=== PATIENT | female | born 1985 | race Caucasian/White ===

== ENCOUNTER 2021-11-24 17:42 | Emergency (ER) | payer BC, SELFPAY ==
[2021-11-24 17:52] VITALS: BP 141/84; PULSE 100; RESP 18; TEMP 37; O2SAT 98; BMI 31.3
--- NOTE | 2021-11-24 18:15 | CRLHL7_ITS ---
For Patients: As a result of the Century Cures Act, medical imaging exams and procedure reports are released immediately into your electronic medical record. You may view this report before your referring provider. If you have questions, please contact your health care provider. INDICATION: RLQ pain. CT ABDOMEN AND PELVIS WITH CONTRAST TECHNIQUE: Multidetector CT imaging was performed through the abdomen and pelvis following intravenous contrast administration using 92 mL Isovue 370. Coronal and sagittal reconstructions were generated. COMPARISON: None. FINDINGS: Lower chest: Lung bases are clear. Liver: Unremarkable aside from a subcentimeter hypodensity in the right hepatic lobe on image 26 of series 2 which is not well characterized but likely benign. Gallbladder and bile ducts: No gallbladder wall thickening or calcified gallstones. No biliary dilation identified. Pancreas: Unremarkable. Spleen: Mild splenomegaly measuring 15.2 centimeters. Adrenals: No nodules or masses. Kidneys, ureters, and urinary bladder: No renal masses or hydronephrosis. No bladder mass or definite wall thickening. Gastrointestinal tract: Moderate abnormal wall thickening of distal ileal loops in the right lower quadrant, including the terminal ileum, with adjacent mild mesenteric edema, consistent with enteritis. No evidence of bowel obstruction. The appendix and colon appear normal. Vascular structures: Normal for age. Peritoneum: Small amount of free fluid in the low pelvis. No loculated collection suggestive of abscess. No free air identified. Lymph nodes: No pathologically enlarged nodes identified. Reproductive organs: No pelvic masses. Bones: Mild to moderate left-sided sacroiliitis (e.g. images 55-59 of series 4). IMPRESSION: 1. Nonspecific enteritis involving the distal ileum in the right lower quadrant, including the terminal ileum, with associated mild mesenteric edema and mild free fluid. In a patient of this age, the most likely considerations are infectious enteritis versus Crohn`s disease. 2. Nonspecific left-sided sacroiliitis. This may be seen in association with Crohn`s disease. 3. Mild splenomegaly. KIMANI TAYLOR MD [facility] Dictated by Bo Taylor MD @ 11/24/2021 7:54:32 PM Please note that all CT scans at this facility use dose modulation, iterative reconstruction, and/or weight-based dosing when appropriate to reduce radiation dose to as low as reasonably achievable. Dictated by: Bo Taylor MD @ 11/24/2021 19:57:26 (Electronically Signed)
--- NOTE | 2021-11-24 18:16 | ED.ABDPAIN ---
HPI - Abdominal Pain General Chief Complaint: Abdominal Pain Stated Complaint: APPENDIX - HOT/COLD CHILLS Time Seen by Provider: 11/24/21 17:50 History of Present Illness HPI narrative: This 36-year-old female comes in reporting a couple days of abdominal pain that is now localized primarily in the right lower quadrant. She had some diarrhea and vomiting with nausea. She has loss of appetite. Last evening her pain was rather severe with some chills. She did not measure a fever. She states that the pain is worse when going over bumps when riding in the car. Related Data Home Medications Medication Instructions Recorded Confirmed No Known Home Medications 11/24/21 11/24/21 Previous Rx's Medication Instructions Recorded ketorolac 10 mg tablet 10 mg PO TID 5 Days #15 tab 11/24/21 methylprednisolone 4 mg tablets in 4 mg PO DAILY #21 ea 11/24/21 a dose pack (Medrol ([facility])) ondansetron HCl 4 mg tablet 4 mg PO Q6H #20 tab 11/24/21 Allergies Allergy/AdvReac Type Severity Reaction Status Date / Time No Known Drug Allergies Allergy Verified 11/24/21 17:59 Review of Systems Status of ROS Reports: 10 or more systems reviewed and unremarkable except as noted in History and below Narrative Constitutional: No fevers, no weight gain or loss. Eyes: No discharge. No vision changes. HENT: No congestion, no sore throat, no ear pain. Cardiovascular: No chest pain, no palpitations. Respiratory: No shortness of breath, no wheezes, no cough. Gastrointestinal: Abdominal pain with vomiting and diarrhea as described above. Genitourinary: No dysuria, no hematuria. Musculoskeletal: Normal range of motion. Skin: No rashes, no pruritis. Neurological: No dizziness, weakness, sensory change, speech change. Endo/Heme/Allergies: No bruising or bleeding. No polydipsia. Pysch: no suicidality, no anxiety, no insomnia. All other systems reviewed and are negative. PFSH PFSH Social History Smoking Status: Never smoker Do you use any of these nicotine containing products: None Second hand tobacco smoke exposure: Yes (as child) How often do you have a drink containing alcohol: monthly or less How many standard drinks containing alcohol do you have on a typical day: 1 or 2 How often do you have six or more drinks on one occasion: Never AUDIT-C Alcohol total score: 1 Non-prescribed substance use: denies use service: No Exam Narrative: Exam Narrative: Constitutional: Well-developed, well-nourished, no acute distress. HEENT: Normocephalic, atraumatic. Neck: Normal range of motion. Nontender. Supple. Heart: Regular. No murmurs. Normal rate. Intact distal pulses. Lungs: Clear to auscultation. No chest discomfort. No wheezes, rhonchi, or rales. Abdomen: Decreased bowel sounds. Tenderness in the right abdomen and right lower quadrant. Mild rebound tenderness. Genitalia: Deferred. Back: No midline tenderness. Normal range of motion. Extremities: Normal range of motion. No injury. Skin: Intact. No rash. Warm. No erythema or pallor. Neurologic: No altered sensation. No weakness. Alert and oriented. Psychiatric: No suicidality. No anxiety or depression. No insomnia. Nursing notes and vitals signs are reviewed. Const: Vital Signs, click to edit/add: Vital Signs - 24 hr 11/24/21 17:52 11/24/21 20:03 Temperature 98.6 F Pulse Rate [Left P ulse Oximeter] 100 87 Respiratory Rate 18 16 Blood Pressure [Le ft Upper Arm] 141/84 H 136/101 H Pulse Oximetry 98 99 Course Vital Signs Vital signs: Initial Vital Signs Temperature 98.6 F 11/24/21 17:52 Temperature Source Temporal Artery Scan 11/24/21 17:52 Pulse Rate 100 11/24/21 17:52 Respiratory Rate 18 11/24/21 17:52 Blood Pressure 141/84 H 11/24/21 17:52 Blood Pressure Mean 103 11/24/21 17:52 Blood Pressure Position Sitting 11/24/21 17:52 Pulse Oximetry 98 11/24/21 17:52 Oxygen Delivery Method 11/24/21 17:52 Vital Signs Temperature 98.6 F 11/24/21 17:52 Pulse Rate 100 11/24/21 17:52 Respiratory Rate 18 11/24/21 17:52 Blood Pressure 141/84 H 11/24/21 17:52 Pulse Oximetry 98 11/24/21 17:52 Temperature 98.6 F 11/24/21 17:52 Pulse Rate 87 11/24/21 20:03 Respiratory Rate 16 11/24/21 20:03 Blood Pressure 136/101 H 07/13/22 20:03 Pulse Oximetry 99 11/24/21 20:03 MDM - Abdominal Pain MDM Narrative Medical decision making narrative: This patient comes in with abdominal pain that has been diffuse in her abdomen but more localized recently in the right lower quadrant. She has decreased appetite but does not report any fevers. She did have some chills last night. An IV was established and labs were drawn which returned with essentially normal findings. Her potassium is just slightly low. Her white count is normal. CT scan of the abdomen and pelvis shows some changes in the distal ileum and terminal ileum typical of an enteritis that may be infectious or could be Crohn's disease. It seems from her vital signs and her white count that this is not an infectious process. I did advise her regarding these findings. The patient received IV doses of Solu-Medrol 125 mg, Toradol 30 mg, and Zofran 4 mg. Prescriptions are provided for Medrol Dosepak, Toradol, and Zofran. I advised the patient to follow up with surgery Clinic or GI specialist if symptoms are recurrent or persistent. She can return also if worsening symptoms occur. Lab Data Labs: Lab Results 11/24/21 11/24/21 11/24/21 Range/Units 18:03 18:40 18:40 WBC 3.97 L (4.50-11.00) K/uL RBC 4.30 (4.00-5.20) m/uL Hgb 12.3 (12.0-16.0) gm/dL Hct 37.1 (33.0-51.0) % MCV 86 (80-100) fL MCH 29 (26-34) pg MCHC 33 (32-36) gm/dL RDW Coeff of Sara 13.4 (11.5-15.5) % Plt Count 177 (140-440) K/uL Neut % (Auto) 70.2 (42.0-72.0) % Lymph % (Auto) 17.6 L (20-44) % [place] % (Auto) 11.6 H (0.0-11.0) % Eos % (Auto) 0.3 (0.0-7.0) % Baso % (Auto) 0.3 (0.0-3.0) % Neut # (Auto) 2.80 (1.7-7.0) K/uL Lymph # (Auto) 0.70 L (0.90-2.90) K/uL [place] # (Auto) 0.50 (0.00-0.90) K/UL Eos # (Auto) 0.00 (0.00-0.50) K/uL Baso # (Auto) 0.00 (0.00-0.30) K/uL Abs Immat Gran (auto) 0.00 (0.00-0.30) K/uL Sodium 136 (135-149) mmol/L Potassium 3.4 L (3.6-5.1) mmol/L Chloride 103 (96-114) mmol/L Carbon Dioxide 23 (20-32) mmol/L BUN 11 (5-24) mg/dL Creatinine 0.6 (0.5-1.5) mg/dL Estimated Creat Clear 114.40 Glucose 99 (60-115) mg/dL Calcium 8.5 (8.4-10.6) mg/dL HCG, Qual Negative (Negative) Urine Color Yellow (Yellow) Urine Appearance Clear (Clear) Urine pH 5.5 (5.0-8.5) Ur Specific [place] <= 1.005 (1.000-1.030) Urine Protein Negative (Negative) Urine Glucose (UA) Negative (Negative) Urine Ketones 1+ A (Negative) Urine Blood Negative (Negative) Urine Nitrite Negative (Negative) Urine Bilirubin Negative (Negative) Urine Urobilinogen 0.2 (0.2-1.0) Ur Leukocyte Esterase Negative (Negative) Imaging Data CT scan - abdomen: Radiologist's impression: 1. Nonspecific enteritis involving the distal ileum in the right lower quadrant, including the terminal ileum, with associated mild mesenteric edema and mild free fluid. In a patient of this age, the most likely considerations are infectious enteritis versus Crohn`s disease. 2. Nonspecific left-sided sacroiliitis. This may be seen in association with Crohn`s disease. 3. Mild splenomegaly. Discharge Plan Discharge Clinical Impression: Enteritis Condition: Stable Instructions: Enteritis (ED) Additional Instructions: Enteritis. Take medication as prescribed. Follow up with primary physician or GI specialist if recurrent or persistent symptoms happen. Return if worsening. Prescriptions: New ondansetron HCl 4 mg tablet 4 mg PO Q6H Qty: 20 0RF ketorolac 10 mg tablet 10 mg PO TID 5 Days Qty: 15 0RF methylprednisolone [Medrol ([facility])] 4 mg tablets,dose pack 4 mg PO DAILY Qty: 21 0RF No Action No Known Home Medications 0RF Follow Up/Referrals: Provider,Not a Local [Primary Care Provider] - Stand Alone Forms: [employer] Info Instructions
[2021-11-24 18:17] LABS: Appearance Urine Clear (Clear); Bilirubin Urine Negative (Negative); Blood Urine Negative (Negative); Color Urine Yellow (Yellow); Glucose Urine Negative (Negative); Ketones Urine 1+ (Negative); Leukocyte Esterase Urine Negative (Negative); Nitrite Urine Negative (Negative); Protein Urine Negative (Negative); Specific Gravity Urine <= 1.005 (1.000-1.030); Urobilinogen Urine 0.2 (0.2-1.0); pH Urine 5.5 (5.0-8.5)
[2021-11-24 18:20] LABS: HCG Qualitative* Negative (Negative)
[2021-11-24 18:48] LABS: Basophils Percent Auto 0.3 % (0.0-3.0); Eosinophils Percent Auto 0.3 % (0.0-7.0); Hematocrit 37.1 % (33.0-51.0); Hemoglobin* 12.3 gm/dL (12.0-16.0); Lymphocytes Percent Auto 17.6 % (20-44); Mean Corpuscular HGB Conc 33 gm/dL (32-36); Mean Corpuscular Hemoglobin 29 pg (26-34); Mean Corpuscular Volume 86 fL (80-100); Monocytes Percent Auto 11.6 % (0.0-11.0); Neutrophils Percent Auto 70.2 % (42.0-72.0); Platelet Count* 177 K/uL (140-440); RDW Coefficient of Variation % 13.4 % (11.5-15.5); White Blood Count* 3.97 K/uL (4.50-11.00)
[2021-11-24 18:53] LABS: Slide Review Reflex No
[2021-11-24 19:12] LABS: Chloride* 103 mmol/L (96-114)
[2021-11-24 19:13] LABS: Potassium* 3.4 mmol/L (3.6-5.1); Sodium* 136 mmol/L (135-149)
[2021-11-24 19:16] LABS: Blood Urea Nitrogen* 11 mg/dL (5-24); Calcium* 8.5 mg/dL (8.4-10.6); Carbon Dioxide* 23 mmol/L (20-32); Creatinine* 0.6 mg/dL (0.5-1.5); Estimated Glomerular Filt Rate 117.75; Glucose* 99 mg/dL (60-115)
[2021-11-24 20:03] VITALS: BP 136/101; PULSE 87; RESP 16; O2SAT 99
[2021-11-24] MEDS: ONDANSETRON 2 MG/ML inj 4 MG IVP (20:50)
[2021-11-24] MEDS: METHYLPREDNISOLONE SOD SUCC 62.5 MG/ML (125) 125 MG IVP (20:50)
[2021-11-24] MEDS: KETOROLAC 30 MG/ML inj IVP (20:51)
--- NOTE | 2021-11-25 10:51 | ED.NURSE ---
[facility] pharmacy is calling to check on the Medrol dose pack ordered for the patient that was not 4mg daily instead of 4-5 tablets.
== END 2021-11-24 21:11 | disposition home or self-care (01) ==
PROVIDERS: Emergency Provider Emergency Medicine Emergency Medical Services
DX: K52.9 Noninfective gastroenteritis and colitis, unspecified (principal)
CPT/HCPCS: 36415; 74177; 80048; 81003; 84703; 85025; 96374; 96375; 99284; 99285; J1885; J2405; J2930; Q9967